=== PATIENT | male | born 1935 | race Caucasian/White ===

== ENCOUNTER → 2016-08-27 | Outpatient (CLI) | payer OTHER ==
--- NOTE | 2016-08-27 11:45 | DX ---
Cervical spine AP lateral 1039 hours. History: Chronic right-sided neck pain with recent worsening of symptoms. Findings: Comparison to February 06, 2012. Vertebral body heights are well-maintained. There are no subluxations. There is stable mild intervert ebral disk space narrowing at C4-C5 and moderate at C5-C6 and C6-C7 with associated marginal osteophy vidya. There is moderate bilateral facet hypertrophy right side greater than left at C3-C4 that has pro gressed since the prior study. Mild facet hypertrophy is suspected mid to lower cervical spine as wel l as well as at C2-C3. Precervical soft tissues and the atlantoaxial relationship appear to be normal . There are no lytic or sclerotic osseous lesions. No fractures are seen. Impression: 1. Degenerative disk disease mid to lower cervical spine similar to the prior study as detailed above . 2. Mild progression of moderate facet hypertrophy more prominent on the right side at C3-C4.
== END ==
LOC: BMCIMAGING 10:42
PROVIDERS: ATTEND Nurse Practitioner Adult Health
DX: M50.320 Other cervical disc degeneration, mid-cervical region, unspecified level (principal); M50.323 Other cervical disc degeneration at C6-C7 level